=== PATIENT | female | born 1960 | race Caucasian/White ===

== ENCOUNTER 2018-03-27 05:56 | Day surgery (SDC) | payer OTHER ==
[~2018-03-27] VITALS: Ht 170.2 cm; Wt 94.8 kg
[~2018-03-27 05:56] MED LIST: ALBU90OI6 INH; ATOR20 PO; BIOTIN-D1 GM PO; CALCA500CH PO; CARV3.125 PO; CHOL10002 PO; CHROMIUM PIC1000 MCG PO; CONEST1.25 PO; COQ1050 MG PO; DULO30 PO; ESTRADIOL1 EAC1 TD; FERR325 PO; FISH1000 PO; GABA300 PO; IBUP400 PO; LISI20 PO; LORA.5 PO; MAGNESIUM PO; Norco 5-325 Ta1 EACH PO; Norco 7.5-3251 EACH PO; OMEPRAZOLE MAGN20 MG PO; ROPI1 PO; SIMV40 PO; TIZANIDINE HCL4 MG PO; TRAM50 PO; TRAZ50 PO; VERA120 PO; Vitamin B Comple1 EA PO; ZOLP10 PO
[2018-03-27] MEDS ORDERED: TRAM50 PO (07:03)
[2018-03-27] MEDS ORDERED: Super Calcium600 MG PO (07:07)
[2018-03-27] MEDS ORDERED: TOCO1000 PO (07:08)
[2018-03-27] MEDS ORDERED: MAGNESIUM250 MG PO (07:09)
[2018-03-27] MEDS ORDERED: Vivelle-Dot1 EAC1 TD (07:26)
[2018-03-27 15:12] LABS: BASOPHILS ABSOLUTE AUTO 0.03 K/mm3 (0.00-0.23); BASOPHILS PERCENT AUTO 0 % (0-2); EOSINOPHILS ABSOLUTE AUTO 0.01 K/mm3 (0.00-0.68); EOSINOPHILS PERCENT AUTO 0 % (0-6); Hemoglobin 12.7 g/dL (11.5-16.0); IMMATURE GRAN ABSOLUTE AUTO 0.06 K/mm3 (0.00-0.10); IMMATURE GRAN PERCENT AUTO 1 % (0-1); LYMPHOCYTES ABSOLUTE AUTO 1.28 K/mm3 (0.84-5.20); LYMPHOCYTES PERCENT AUTO 11 % (21-46); MONOCYTES ABSOLUTE AUTO 0.34 K/mm3 (0.16-1.47); MONOCYTES PERCENT AUTO 3 % (4-13); Mean Corpuscular HGB 28.3 pg (26.0-34.0); Mean Corpuscular HGB Conc 32.6 g/dL (31.5-36.5); Mean Corpuscular Volume 87 fL (80-100); Mean Platelet Volume 9.8 fL (9.1-12.4); NEUTROPHILS ABSOLUTE AUTO 10.36 K/mm3 (1.96-9.15); NEUTROPHILS PERCENT AUTO 86 % (41-73); Platelet Count 225 K/mm3 (150-400); RDW Coefficient Variation 13.2 % (11.7-14.2); RDW Standard Deviation 41.6 fL (35.1-46.3); Red Blood Cell Count 4.48 M/mm3 (3.80-5.20); White Blood Cell Count 12.08 K/mm3 (4.00-11.30)
[2018-03-28 05:56] LABS: BASOPHILS ABSOLUTE AUTO 0.02 K/mm3 (0.00-0.23); BASOPHILS PERCENT AUTO 0 % (0-2); EOSINOPHILS ABSOLUTE AUTO 0.08 K/mm3 (0.00-0.68); EOSINOPHILS PERCENT AUTO 1 % (0-6); Hematocrit 33.9 % (33.0-51.0); Hemoglobin 11.1 g/dL (11.5-16.0); IMMATURE GRAN ABSOLUTE AUTO 0.03 K/mm3 (0.00-0.10); IMMATURE GRAN PERCENT AUTO 0 % (0-1); LYMPHOCYTES ABSOLUTE AUTO 2.65 K/mm3 (0.84-5.20); LYMPHOCYTES PERCENT AUTO 28 % (21-46); MONOCYTES ABSOLUTE AUTO 0.59 K/mm3 (0.16-1.47); MONOCYTES PERCENT AUTO 6 % (4-13); Mean Corpuscular HGB 28.8 pg (26.0-34.0); Mean Corpuscular HGB Conc 32.7 g/dL (31.5-36.5); Mean Corpuscular Volume 88 fL (80-100); Mean Platelet Volume 9.7 fL (9.1-12.4); NEUTROPHILS ABSOLUTE AUTO 5.97 K/mm3 (1.96-9.15); NEUTROPHILS PERCENT AUTO 64 % (41-73); Platelet Count 195 K/mm3 (150-400); RDW Coefficient Variation 13.2 % (11.7-14.2); RDW Standard Deviation 42.2 fL (35.1-46.3); Red Blood Cell Count 3.85 M/mm3 (3.80-5.20); White Blood Cell Count 9.34 K/mm3 (4.00-11.30)
== END 2018-03-28 10:50 | disposition home or self-care (01) ==
LOC: ORSCMMR 05:56 → ORD 07:30 → SURS 10:40 → ORSCMMR 03-28 10:50
PROVIDERS: Obstetrics & Gynecology Gynecology
PROC: 0TSD0ZZ Reposition Urethra, Open Approach (ICD-10-PCS; principal; 2018-03-27 07:30)
PROC: 0JQC0ZZ Repair Pelvic Region Subcutaneous Tissue and Fascia, Open Approach (ICD-10-PCS; principal; 2018-03-27 07:30)
PROC: 0UQF0ZZ Repair Cul-de-sac, Open Approach (ICD-10-PCS; principal; 2018-03-27 07:30)
DX: N81.12 Cystocele, lateral (principal); N81.6 Rectocele; N81.5 Vaginal enterocele; N39.3 Stress incontinence (female) (male); I10 Essential (primary) hypertension; K21.9 Gastro-esophageal reflux disease without esophagitis; F17.210 Nicotine dependence, cigarettes, uncomplicated; M79.7 Fibromyalgia; E66.9 Obesity, unspecified; Z68.32 Body mass index [BMI] 32.0-32.9, adult; Z79.899 Other long term (current) drug therapy
CPT/HCPCS: 36415; 85025; 94760; C1771; J0690; J1100; J1885; J2370; J2405; J2765; J3010; J7120

== ENCOUNTER → 2019-03-13 | Outpatient (CLI) | payer OTHER ==
[~2019-03-13] MED LIST changes: +MAGNESIUM250 MG PO; +Super Calcium600 MG PO; +TOCO1000 PO; +Vivelle-Dot1 EAC1 TD
== END ==
LOC: LAB 19:48 → LAB SHORT 19:48
DX: R30.9 Painful micturition, unspecified (principal)
CPT/HCPCS: 87077; 87086; 87186